=== PATIENT | male | born 1960 | race African-American/Black ===

== ENCOUNTER 2018-10-19 18:38 | Emergency (ER) | payer SELFPAY ==
[~2018-10-19] VITALS: Ht 167.6 cm; Wt 90.7 kg
[2018-10-19 18:45] VITALS: BP 147/83
[2018-10-19] MEDS ORDERED: HYDROcodone/APAP 10/325 1 TAB TABLET PO ONE (19:15)
[2018-10-19] MEDS ORDERED: CYCLOBENZAPRINE 10 MG TABLET. PO ONE (19:15)
--- NOTE | 2018-10-19 19:15 | PHYS DOC ---
Past Medical History Past Medical History: No Pertinent History (MADAI MELENDEZ) Past Surgical History: No Surgical History (MADAI MELENDEZ) Alcohol Use: None Drug Use: None (MADAI MELENDEZ) Adult General Chief Complaint Chief Complaint: LOWER BACK PAIN OR INJURY HPI HPI Patient is a 57 year old M who reports pain in his low R back just above the buttock for 2-3 days and then mild pain in his R groin today. He denies dysuria or hx of stones. He reports normal BM and denies any trauma. Pt has been lifting weights and noticed increased pain when lifting. (MADAI MELENDEZ) Review of Systems Review of Systems Constitutional: Denies fever or chills Respiratory: Denies cough or shortness of breath Cardiovascular: Denies chest pain GI: Denies abdominal pain, nausea, vomiting or diarrhea. : Denies dysuria or hematuria. Reports R inguinal pain. Musculoskeletal: Reports back pain. Integument: Denies rash or skin lesions Neurologic: Denies headache, focal weakness or sensory changes All other systems were reviewed and found to be within normal limits, except as documented in this note. (MADAI MELENDEZ) Current Medications Current Medications Current Medications Medications (Trade) Dose Ordered Sig/Baldemar Start Time Stop Time Status Last Admin Dose Admin Acetaminophen/ Hydrocodone Bitart (Lortab 10/325) 1 tab 1X ONCE 10/19/18 19:15 10/19/18 19:23 DC 10/19/18 19:33 1 TAB Cyclobenzaprine HCl (Flexeril) 10 mg 1X ONCE 10/19/18 19:15 10/19/18 19:23 DC 10/19/18 19:33 10 MG (DEBORAH JUSTICE MD) Allergies Allergies Allergies Coded Allergies Type Severity Reaction Last Updated Verified No Known Drug Allergies 10/19/18 No (DEBORAH JUSTICE MD) Physical Exam Physical Exam Constitutional: Well developed, well nourished, no acute distress, non-toxic appearance. Neck: Normal range of motion, no tenderness, supple, no stridor. Cardiovascular:Heart rate regular rhythm, no murmur Lungs & Thorax: Bilateral breath sounds clear to auscultation Abdomen: Bowel sounds normal, soft, no tenderness, no masses, no pulsatile masses. R inguinal region palpated, no hernia felt with rest or valsalva. Skin: Warm, dry, no erythema, no rash. Back: No CVA tenderness. Pt has pain in R low lumbar region along SI location. Extremities: No tenderness, no cyanosis, no clubbing, ROM intact, no edema. Neurologic: Alert and oriented X 3, normal motor function, normal sensory function, no focal deficits noted. Psychologic: Affect normal, judgement normal, mood normal. (MADAI MELENDEZ) Current Patient Data Vital Signs Vital Signs Date Time Temp Pulse Resp B/P (MAP) Pulse Ox O2 Delivery O2 Flow Rate FiO2 10/19/18 19:33 17 95 Room Air 10/19/18 18:45 97.5 90 147/83 (104) 97.5 (DEBORAH JUSTICE MD) Lab Values Laboratory Tests Test 10/19/18 19:10 Urine Collection Type Unknown Urine Color Yellow Urine Clarity Clear Urine pH 8.0 Urine Specific [place] 1.015 Urine Protein Negative mg/dL (NEG-TRACE) Urine Glucose (UA) Negative mg/dL (NEG) Urine Ketones (Stick) Negative mg/dL (NEG) Urine Blood Negative (NEG) Urine Nitrite Negative (NEG) Urine Bilirubin Negative (NEG) Urine Urobilinogen Dipstick 0.2 mg/dL (0.2 mg/dL) Urine Leukocyte Esterase Negative (NEG) Urine RBC 0 /HPF (0-2) Urine WBC 0 /HPF (0-4) Urine Bacteria 0 /HPF (0-FEW) Urine Mucus Slight /LPF Urine Sperm Present /HPF (DEBORAH JUSTICE MD) Lab Values Laboratory Tests Test 10/19/18 19:10 Urine Collection Type Unknown Urine Color Yellow Urine Clarity Clear Urine pH 8.0 Urine Specific [place] 1.015 Urine Protein Negative mg/dL (NEG-TRACE) Urine Glucose (UA) Negative mg/dL (NEG) Urine Ketones (Stick) Negative mg/dL (NEG) Urine Blood Negative (NEG) Urine Nitrite Negative (NEG) Urine Bilirubin Negative (NEG) Urine Urobilinogen Dipstick 0.2 mg/dL (0.2 mg/dL) Urine Leukocyte Esterase Negative (NEG) Urine RBC 0 /HPF (0-2) Urine WBC 0 /HPF (0-4) Urine Bacteria 0 /HPF (0-FEW) Urine Mucus Slight /LPF Urine Sperm Present /HPF (MADAI MELENDEZ) EKG EKG [] (MADAI MELENDEZ) Radiology/Procedures Radiology/Procedures [] (MADAI MELENDEZ) Impressions: KUB done which shows normal bowel pattern and no obvious large kidney stones (MADAI MELENDEZ) Course & Med Decision Making Course & Med Decision Making Pertinent Labs and Imaging studies reviewed. (See chart for details) UA normal, KUB does not show any large stones. Pt's pain is low lumbar region, rather then flank and sounds suspicious for musculoskeletal strain with recent weight lifting. Discussed hernia risk but no palpable hernia at this time. Pt to f/u closely with his PCP and return if symptoms worsen. (MADAI MELENDEZ) Course & Med Decision Making Staff Physician Addendum: I was working in the ER during the course of this patient's visit. I was available for consultation as needed, but I was not directly involved in the care of this patient. (DEBORAH JUSTICE MD) Dragon Disclaimer Dragon Disclaimer This electronic medical record was generated, in whole or in part, using a voice recognition dictation system. (MADAI MELENDEZ) Departure Departure Impression: Primary Impression: Strain of lumbar spine Additional Impressions: Sciatica Inguinal strain Disposition: HOME, SELF-CARE Condition: IMPROVED Referrals: NO PCP (PCP) JEANA MANNING MD Patient Instructions: Inguinal Strain, Sciatica, [id number] Additional Instructions: No lifting greater then 15 lbs x 1 week. Follow up with PCP if symptoms persist or worsen. Scripts Cyclobenzaprine Hcl (CYCLOBENZAPRINE HCL) 10 Mg Tablet 1 TAB PO TID PRN for MUSCLE SPASMS, #21 TAB Prov: MADAI MELENDEZ 10/19/18 Hydrocodone/Apap 5-325 (NORCO 5-325 TABLET) 1 Each Tablet 1-2 TAB PO Q4-6HRS PRN for PAIN, #15 TAB Prov: MADAI MELENDEZ 10/19/18 Problem Qualifiers MADAI MELENDEZ Oct 19, 2018 19:15 DEBORAH JUSTICE MD Oct 23, 2018 19:42
[2018-10-19 19:20] LABS: BILIRUBIN,URINE NEGATIVE (NEG); CLARITY,URINE CLEAR; COLOR,URINE YELLOW; NITRITE,URINE NEGATIVE (NEG); PROTEIN,URINE NEGATIVE (NEG-TRACE); UROBILINOGEN,URINE 0.2 mg/dL (0.2 mg/dL)
[2018-10-19 19:32] LABS: BACTERIA,URINE 0 /HPF (0-FEW); RBC,URINE 0 /HPF (0-2); WBC,URINE 0 /HPF (0-4)
[2018-10-19 19:35] LABS: SPERM,URINE PRESENT /HPF
[2018-10-19] MEDS ORDERED: HYDR-3164 PO (19:48)
[2018-10-19] MEDS ORDERED: CYCL10TA2 PO (19:48)
--- NOTE | 2018-10-19 21:30 | RAD ---
Supine abdomen. HISTORY: Low back pain radiating to groin Supine view was taken of the abdomen. There is hypertrophic and degenerative change in the lumbar spine. There are phleboliths in the pelvis. A definite ureteral calculus is not evident. A renal calculus is not evident. Bowel pattern is normal. IMPRESSION: 1. No bowel obstruction or acute finding in the abdomen. Electronically signed by: Orion Roy MD (10/19/2018 9:27 PM) [id number]
== END 2018-10-19 19:58 | disposition home or self-care (01) ==
LOC: ER 18:38
DX: S39.011A Strain of muscle, fascia and tendon of abdomen, initial encounter (principal); S39.012A Strain of muscle, fascia and tendon of lower back, initial encounter; M54.41 Lumbago with sciatica, right side; X50.0XXA Overexertion from strenuous movement or load, initial encounter; Y93.89 Activity, other specified; Y92.89 Other specified places as the place of occurrence of the external cause; Y99.8 Other external cause status
CPT/HCPCS: 74018; 81001; 99285-25